=== PATIENT | female | born 1970 | race Caucasian/White ===

== ENCOUNTER 2023-02-10 11:29 | Emergency (ER) | payer SELFPAY ==
--- NOTE | 2023-02-10 12:03 | EDPHYS ---
Physician Documentation [facility] Name: Teetee Argueta Age: 52 yrs Sex: Female : 1970 Arrival Date: 02/10/2023 Time: 11:29 Bed 6 Private MD: ED Physician Francisco Durbin HPI: 02/10 11:57 This 52 yrs old Female presents to ER via EMS with complaints of Drug Abuse. jaye 11:57 weak, dizzy, taking pain meds. The patient presents with confusion, trouble jaye concentrating. Onset: The symptoms/episode began/occurred just prior to arrival. Possible causes: drug use, unk. Associated signs and symptoms: The patient has no apparent associated signs or symptoms. Onset: The symptoms/episode began/occurred. Current symptoms: In the emergency department the patient's symptoms have improved, moderately. Patient's baseline: Neuro: alert and fully oriented. Severity of symptoms: At their worst the symptoms were moderate in the emergency department the symptoms have improved moderately. Historical: - Allergies: 11:33 No Known Allergies; bp - Home Meds: 11:33 None [Active]; bp - PMHx: 11:33 Chronic back pain; bp - Immunization history:: Adult Immunizations unknown. - Social history:: Smoking status: unknown. ROS: 12:00 Constitutional: Negative for fever, chills, and weight loss, Eyes: Negative for injury, jaye pain, redness, and discharge, ENT: Negative for injury, pain, and discharge, Neck: Negative for injury, pain, and swelling, Cardiovascular: Negative for chest pain, palpitations, and edema, Respiratory: Negative for shortness of breath, cough, wheezing, and pleuritic chest pain, Abdomen/GI: Negative for abdominal pain, nausea, vomiting, diarrhea, and constipation, Back: Negative for injury and pain, : Negative for injury, bleeding, discharge, and swelling, MS/Extremity: Negative for injury and deformity, Skin: Negative for injury, rash, and discoloration, Psych: Negative for depression, anxiety, suicide ideation, homicidal ideation, and hallucinations, Allergy/Immunology: Negative for hives, rash, and allergies, Endocrine: Negative for neck swelling, polydipsia, polyuria, polyphagia, and marked weight changes, Hematologic/Lymphatic: Negative for swollen nodes, abnormal bleeding, and unusual bruising. 12:00 Neuro: Positive for altered mental status. Exam: 12:00 Constitutional: This is a well developed, well nourished patient who is awake, alert, jaye and in no acute distress. Head/Face: Normocephalic, atraumatic. Eyes: Pupils equal round and reactive to light, extra-ocular motions intact. Lids and lashes normal. Conjunctiva and sclera are non-icteric and not injected. Cornea within normal limits. Periorbital areas with no swelling, redness, or edema. ENT: Nares patent. No nasal discharge, no septal abnormalities noted. Tympanic membranes are normal and external auditory canals are clear. Oropharynx with no redness, swelling, or masses, exudates, or evidence of obstruction, uvula midline. Mucous membranes moist. Neck: Trachea midline, no thyromegaly or masses palpated, and no cervical lymphadenopathy. Supple, full range of motion without nuchal rigidity, or vertebral point tenderness. No Meningismus. Chest/axilla: Normal chest wall appearance and motion. Nontender with no deformity. No lesions are appreciated. Cardiovascular: Regular rate and rhythm with a normal S1 and S2. No gallops, murmurs, or rubs. Normal PMI, no JVD. No pulse deficits. Respiratory: Lungs have equal breath sounds bilaterally, clear to auscultation and percussion. No rales, rhonchi or wheezes noted. No increased work of breathing, no retractions or nasal flaring. Abdomen/GI: Soft, non-tender, with normal bowel sounds. No distension or tympany. No guarding or rebound. No evidence of tenderness throughout. Back: No spinal tenderness. No costovertebral tenderness. Full range of motion. Skin: Warm, dry with normal turgor. Normal color with no rashes, no lesions, and no evidence of cellulitis. MS/ Extremity: Pulses equal, no cyanosis. Neurovascular intact. Full, normal range of motion. Neuro: Awake and alert, GCS 15, oriented to person, place, time, and situation. Cranial nerves II-XII grossly intact. Motor strength 5/5 in all extremities. Sensory grossly intact. Cerebellar exam normal. Normal gait. Psych: Awake, alert, with orientation to person, place and time. Behavior, mood, and affect are within normal limits. Vital Signs: 11:31 BP 140 / 73; Pulse 84; Resp 16; Temp 98; Pulse Ox 98% ; bp 12:02 BP 145 / 92; Pulse 87; Resp 18 S; Pulse Ox 99% on R/A; aa5 MDM: 11:33 Patient medically screened. jaye Administered Medications: No medications were administered Disposition Summary: 02/10/23 12:02 Discharge Ordered Location: Home jaye Problem: new jaye Symptoms: have improved jaye Condition: Stable jaye Diagnosis - Abuse of other non-psychoactive substances jaye - Altered mental status, unspecified jaye Followup: jaye - With: Private Physician - When: 2 - 3 days - Reason: Recheck today's complaints, Continuance of care, Re-evaluation by your physician Discharge Instructions: - Discharge Summary Sheet jaye - Finding Treatment for Addiction jaye - Confusion jyae - Substance Use Disorder jaye - Supporting Someone With an Addiction jaye - Substance Use Disorder and Mental Illness jaye - Recovering From Addiction jaye - Supporting Someone With Substance Use Disorder jaye - Preventing [id number] Drug Misuse jaye Forms: - Medication Reconciliation Form jaye - Thank You Letter jaye - Antibiotic Education jaye - Prescription Opioid Use jaye - Patient Portal Instructions jaye - Leadership Thank You Letter [facility] Signatures: Francisco Durbin MD MD cha Peltier, Brian, RN RN bp
--- NOTE | 2023-02-10 12:03 | ER ---
Nurse's Notes [facility] Name: Teetee Argueta Age: 52 yrs Sex: Female : 1970 Arrival Date: 02/10/2023 Time: 11:29 Bed 6 Private MD: Diagnosis: Abuse of other non-psychoactive substances;Altered mental status, unspecified Presentation: 02/10 11:31 Chief complaint: EMS states: PT PULLED OVER BY [facility], DEEMED TOO HIGH FOR [facility] AND EMS bp DIRECTED TO TRANSPORT TO ER. PER PASSENGER, PT ON [facility]. Coronavirus screen: At this time, the client does not indicate any symptoms associated with coronavirus-19. Ebola Screen: No symptoms or risks identified at this time. Initial Sepsis Screen: Does the patient meet any 2 criteria? No. Patient's initial sepsis screen is negative. Does the patient have a suspected source of infection? No. Patient's initial sepsis screen is negative. Risk Assessment: Do you want to hurt yourself or someone else? Patient reports no desire to harm self or others. Onset of symptoms was February 10, 2023. Care prior to arrival: IV initiated. 20 GA, in the left forearm, Glucose check: 168. 11:31 Method Of Arrival: EMS: [facility] bp 11:31 Acuity: OLY 3 bp Triage Assessment: 11:33 General: Appears in no apparent distress. Behavior is cooperative, drowsy. Pain: Denies bp pain. EENT: No deficits noted. Neuro: Level of Consciousness is obeys commands, lethargic, Oriented to Appropriate for age. Cardiovascular: Rhythm is sinus rhythm. Respiratory: No deficits noted. GI: No signs and/or symptoms were reported involving the gastrointestinal system. : No signs and/or symptoms were reported regarding the genitourinary system. Derm: No deficits noted. Musculoskeletal: No deficits noted. Historical: - Allergies: 11:33 No Known Allergies; bp - Home Meds: 11:33 None [Active]; bp - PMHx: 11:33 Chronic back pain; bp - Immunization history:: Adult Immunizations unknown. - Social history:: Smoking status: unknown. Screenin:35 [facility] ED Fall Risk Assessment (Adult) History of falling in the last 3 months, bp including since admission No falls in past 3 months (0 pts). Abuse screen: Denies threats or abuse. Denies injuries from another. Nutritional screening: No deficits noted. Tuberculosis screening: No symptoms or risk factors identified. Assessment: 11:34 General: SEE TRIAGE NOTE. bp 11:36 General: Appears uncomfortable, Behavior is anxious, restless. Pain: Denies pain. aa5 Neuro: Level of Consciousness is awake, alert, obeys commands, Oriented to person, place, time, situation. Cardiovascular: Heart tones S1 S2 present Rhythm is regular. Respiratory: Airway is patent Respiratory effort is even, unlabored, Respiratory pattern is regular, symmetrical. GI: No signs and/or symptoms were reported involving the gastrointestinal system. : No signs and/or symptoms were reported regarding the genitourinary system. EENT: No signs and/or symptoms were reported regarding the EENT system. Derm: Skin is pink, warm \\T\\ dry. Musculoskeletal: Range of motion: intact in all extremities. 11:45 Reassessment: Pt states "I want to go, I don't want to be here". was notified. . aa5 12:02 Reassessment: Patient is alert, oriented x 3, equal unlabored respirations, skin aa5 warm/dry/pink. 12:02 General: Behavior is calm. aa5 Vital Signs: 11:31 BP 140 / 73; Pulse 84; Resp 16; Temp 98; Pulse Ox 98% ; bp 12:02 BP 145 / 92; Pulse 87; Resp 18 S; Pulse Ox 99% on R/A; aa5 ED Course: 11:31 Patient arrived in ED. bp 11:33 Francisco Durbin MD is Attending Physician. jaye 11:33 Triage completed. bp 11:33 Arm band placed on. bp 11:35 Patient has correct armband on for positive identification. Bed in low position. Call bp light in reach. Side rails up X2. 11:35 Maintain EMS IV. Dressing intact. Good blood return noted. Site clean \\T\\ dry. Gauge \\T\\ bp site: 20 GA LEFT FA. 11:37 Monse Nunn, RN is Primary Nurse. aa5 12:00 No provider procedures requiring assistance completed. IV discontinued, intact, aa5 bleeding controlled, No redness/swelling at site. Pressure dressing applied. Administered Medications: No medications were administered Medication: 12:00 VIS not applicable for this client. aa5 Outcome: 12:02 Discharge ordered by . jaye 12:02 Discharged to home ambulatory. aa5 12:02 Condition: stable 12:02 Discharge instructions given to patient, Instructed on discharge instructions, follow up and referral plans. Demonstrated understanding of instructions, follow-up care. 12:03 Patient left the ED. aa5 Signatures: Francisco Durbin MD MD cha Calderon, Audri, RN RN aa5 Armando Shah, RN RN bp
[2023-02-10 12:31] VITALS: BP 140/73; TEMP 98; O2SAT 98
== END 2023-02-10 12:03 | disposition home or self-care (01) ==
LOC: ER 11:29
DX: F55.8 Abuse of other non-psychoactive substances (principal)
CPT/HCPCS: 99283